=== PATIENT | male | born 1965 | race Caucasian/White ===

== ENCOUNTER 2018-05-16 06:01 | Day surgery (SDC) | payer OTHER ==
[2018-05-16 07:18] LABS: ABNORMAL IP MESSAGE 1; HEMATOCRIT 20.5 % (42.0-52.0); MEAN CORPUSCULAR HEMOGLOBIN 29.5 pg (29.0-33.0); MEAN CORPUSCULAR HGB CONC 32.2 g/dl (32.0-37.0); MEAN CORPUSCULAR VOLUME 91.5 fl (82.0-101.0); MEAN PLATELET VOLUME 9.8 fl (7.4-10.4); PLATELET COUNT 69 10^3/UL (140-415); POSITIVE DIFF @See below; RED BLOOD COUNT 2.24 10^6/ul (4.70-6.10); RED CELL DISTRIBUTION WIDTH 17.1 % (11.5-14.5)
[2018-05-16 07:24] LABS: ADD MAN DIFF? YES; HEMOGLOBIN 6.6 g/dl (14.0-18.0); HOLD TRANSMISSIONS 1
[2018-05-16 07:33] LABS: INR 1.28; PROTIME 16.1 Sec (11.9-14.9); PT RATIO 1.3
[2018-05-16] MEDS ORDERED: HEPARIN 1000 UNITS/ML 10 ML INJ (07:33)
[2018-05-16] MEDS ORDERED: LIDOCAINE 1% (MPF) 30 ML INJ (07:33)
[2018-05-16 07:34] LABS: PARTIAL THROMBOPLASTIN TIME 34.5 Sec (23.0-35.0)
[2018-05-16] MEDS ORDERED: THROMBIN 5000 UNIT VIAL (07:34)
[2018-05-16] MEDS ORDERED: MIDAZOLAM 1 MG/ML 2 ML INJ (07:43)
[2018-05-16] MEDS ORDERED: SEVOFLURANE 15 MIN (07:43)
[2018-05-16] MEDS ORDERED: CEFAZOLIN 1 GM INJ (07:43)
[2018-05-16] MEDS ORDERED: BUPIVACAINE 0.5% (SDV) 30 ML INJ (07:43)
[2018-05-16 07:45] LABS: ALANINE AMINOTRANSFERASE 22 IU/L (13-69); ALBUMIN/GLOBULIN RATIO 0.84; ALKALINE PHOSPHATASE 66 IU/L (42-121); ANION GAP 10 (5-13); ASPARTATE AMINO TRANSFERASE 32 IU/L (15-46); BILIRUBIN,INDIRECT 0.4 mg/dl (0-1.1); BILIRUBIN,TOTAL 0.4 mg/dl (0.2-1.3); CARBON DIOXIDE 32 mmol/L (21-31); CHLORIDE 100 mmol/L (97-110); Estimated GFR 18 mL/min (>60); GLUCOSE 97 mg/dl (70-220); POTASSIUM 3.6 mmol/L (3.5-5.1); SODIUM 142 mmol/L (135-144); TOTAL PROTEIN 6.1 g/dl (6.1-8.1)
[2018-05-16 07:48] LABS: BLOOD UREA NITROGEN 29 mg/dl (7-20)
[2018-05-16 07:49] LABS: ALBUMIN 2.8 g/dl (3.3-4.9); CALCIUM 7.7 mg/dl (8.4-10.2)
[2018-05-16] MEDS: HEPARIN 1000 UNITS/ML 10 ML INJ IRR (07:50)
[2018-05-16 08:01] LABS: ANISOCYTOSIS 1+ (0-0); EOSINOPHILS % (M) 3 % (0-7); GIANT THROMBO% (M) 1 % (0-0); HYPOCHROMASIA 1+ (0-0); LYMPHOCYTES #M 0.9 10^3/ul (0.8-2.9); LYMPHOCYTES % (M) 23 % (15-51); MICROCYTOSIS 1+ (0-0); MONOCYTE #M 0.4 10^3/ul (0.3-0.9); MONOCYTES % (M) 11 % (0-11); PLATELET ESTIMATE DECREASED; POLYCHROMASIA 2+ (0-0); SEGMENTED NEUTROPHILS (M) % 63 % (39-77); SMUDGE%M 4 % (0-0)
[2018-05-16] MEDS ORDERED: FENTAnyl 50 MCG/ML VIAL (08:11)
[2018-05-16] MEDS ORDERED: PHENYLephrine (100 MCG/ML) 5ML SYG (08:16)
[2018-05-16] MEDS ORDERED: ROPIVACAINE 0.5 % 30 ML VIAL (08:16)
[2018-05-16] MEDS ORDERED: GELATIN SIZE 100 SPONGE (08:36)
[2018-05-16] MEDS ORDERED: PROPOFOL 20 ML (09:22)
[2018-05-16] MEDS ORDERED: LIDOCAINE 2% (SDV) 5 ML INJ (09:22)
[2018-05-16] MEDS ORDERED: DIPHENHYDRAMINE 50 MG INJ IV (10:00)
[2018-05-16] MEDS ORDERED: HYDROmorphONE 1 MG/5 ML IV SYRINGE IV ×3 (10:00)
[2018-05-16] MEDS ORDERED: LABETALOL HCL 20MG INJ IV (10:00)
[2018-05-16] MEDS ORDERED: EPHEDrine SULFATE 50 MG/5 ML SYG IV (10:00)
[2018-05-16] MEDS ORDERED: ONDANSETRON 4 MG INJ IV (10:00)
[2018-05-16] MEDS ORDERED: OXYCODONE/ACETAMINOPHEN (5/325) TAB PO ×2 (10:00)
[2018-05-16] MEDS ORDERED: MEPERIDINE 25 MG INJ IV (10:00)
[2018-05-16] MEDS ORDERED: MIDAZOLAM 1 MG/ML 2 ML INJ IV (10:00)
[2018-05-16] MEDS ORDERED: FENTAnyl 50 MCG/ML VIAL IV ×3 (10:00)
[2018-05-16] MEDS ORDERED: ALBUTEROL 0.083% (NEB) 2.5 MG/3 ML AMP HHN (10:00)
[2018-05-16] MEDS ORDERED: hydrALAzine 20 MG INJ IV (10:00)
[2018-05-16] MEDS ORDERED: METOCLOPRAMIDE 10 MG INJ IV (10:00)
== END 2018-05-16 12:20 | disposition home or self-care (01) ==
LOC: SDS 06:01
DX: I12.0 Hypertensive chronic kidney disease with stage 5 chronic kidney disease or end stage renal disease (principal); N18.6 End stage renal disease
CPT/HCPCS: 36819; 71045; 80053; 85025; 85610; 85730; 86850; 86900; 86901; 86920; 93005